=== PATIENT | female | born 1960 | race African-American/Black ===

== ENCOUNTER 2019-04-09 14:37 | Emergency (ER) | payer OTHER ==
[~2019-04-09] VITALS: Ht 162.6 cm; Wt 99.8 kg
[~2019-04-09 14:37] MED LIST: ACETAMINOPHEN325 M1 PO; AMITRIPTYLINE H25 M2 PO; AMITRIPTYLINE H25 M3 PO; ASPIRIN EC325 M1 PO; ASPIRIN325 PO; ATORVASTATIN CA40 MG PO; B-12 DOTS500 MCG; BENTYL 20 MG TA20 M1 PO; CELEBREX 200 M200 MG PO; COLACE 100 MG100 MG PO; CREON DR 12,001 EACH PO; CREON PO; DULCOLAX STOOL100 MG PO; GLUCOPHAGE1000 MG PO; HUMALOG100 UNIT/1 SQ; HYDROCHLOROTHIA25 M1 PO; LANTUS SQ; LIPITOR40 MG PO; LISINOPRIL40 MG PO; NORCO 5-325 TA1 EACH PO; OMEPRAZOLE20 M2 PO; PHENERGAN 25 MG25 M1 PO; PHENERGAN 25 MG25 MG PO; PRILOSEC40 MG PO; REGLAN 10 MG TA10 M1 PO; REGLAN 10 MG TA10 MG PO; TRAMADOL 50 MG50 MG; TRAMADOL HCL200 MG PO; TRIAMTERENE-HC1 EAC1 PO; ZOFRAN ODT4 MG PO
[2019-04-09 15:03] LABS: URINE BILIRUBIN NEGATIVE (Negative); URINE BLOOD TRACE (Negative); URINE CLARITY CLEAR; URINE COLOR YELLOW; URINE GLUCOSE-RANDOM* NEGATIVE (Negative); URINE KETONES NEGATIVE (Negative); URINE LEUKOCYTES-REFLEX TRACE (Negative); URINE NITRITE-REFLEX NEGATIVE (Negative); URINE PROTEIN (DIPSTICK) NEGATIVE (Negative); URINE SPECIFIC GRAVITY 1.015 (1.005-1.035); URINE UROBILINOGEN 0.2 E.U./dl (0.2-1.0)
[2019-04-09 15:30] LABS: ABSOLUTE NEUTROPHILS 7.5 thou/uL (1.4-8.2); BASOPHILS 0.3 % (0.0-2.0); EOSINOPHILS 0.3 % (0.0-3.0); HEMATOCRIT 39.8 % (37.0-47.0); HEMOGLOBIN 12.7 gm/dL (12.0-15.0); LYMPHOCYTES 21.5 % (24.0-44.0); MCH 26.3 pg (26.0-34.0); MCHC 31.8 g/dL (28.0-37.0); MCV 82.7 fL (80.0-100.0); MONOCYTES 6.4 % (1.0-8.0); PLATELET COUNT 404 thou/uL (150-400); POLYS 71.5 % (36.0-66.0); RBC 4.82 mil/uL (4.20-5.00); RDW 15.1 % (10.5-14.5); WBC 10.4 thou/uL (4.0-11.0)
[2019-04-09 15:39] LABS: CREATININE 1.3 mg/dL (0.6-1.0)
[2019-04-09 15:40] LABS: POTASSIUM 4.2 mmol/L (3.5-5.1)
[2019-04-09] MEDS ORDERED: LISINOPRIL-HCT1 EAC1 PO (15:40)
[2019-04-09] MEDS ORDERED: LEVEMIR FL100 UNIT/2 SUBQ (15:41)
[2019-04-09] MEDS ORDERED: HUMALOG KW100 UNIT/1 SUBQ (15:42)
[2019-04-09] MEDS ORDERED: PANTOPRAZOLE SO40 M1 PO (15:43)
[2019-04-09] MEDS ORDERED: SLEEP AID50 MG PO (15:44)
[2019-04-09 15:45] LABS: ALBUMIN 4.1 g/dL (3.4-5.0); TOTAL BILIRUBIN 0.5 mg/dL (<0.1-1.0); TOTAL PROTEIN 8.5 g/dL (6.4-8.2)
[2019-04-09] MEDS ORDERED: OSTERA TABLET1 EAC1 PO (15:45)
[2019-04-09] MEDS ORDERED: ZOFRAN ODT4 MG PO (17:09)
[2019-04-09] MEDS ORDERED: TESSALON PERLE100 MG PO (17:11)
[2019-04-09 17:35] VITALS: BP 164/101
== END 2019-04-09 17:37 | disposition home or self-care (01) ==
LOC: ER 14:37
PROVIDERS: Emergency Medicine
DX: E11.43 Type 2 diabetes mellitus with diabetic autonomic (poly)neuropathy (principal); K31.84 Gastroparesis; R11.2 Nausea with vomiting, unspecified; I10 Essential (primary) hypertension; K21.9 Gastro-esophageal reflux disease without esophagitis; E78.5 Hyperlipidemia, unspecified; Z79.4 Long term (current) use of insulin